=== PATIENT | male | born 1940 | race Caucasian/White ===

== ENCOUNTER 2024-10-23 18:52 | Inpatient (IN) ==
--- NOTE | 2024-10-23 19:16 | Emergency Department Note ---
Impression & Plan ANNA (acute kidney injury), Generalized weakness ED Provider Note HISTORY OF PRESENT ILLNESS: Patient is an 84-year-old male presenting with abnormal laboratory workup. Patient reports that he had called his primary care provider and was evaluated today secondary to feeling generally unwell for the last few days. He states that he has been very tired and rundown and not able to do his daily activities. He reports he has been eating and drinking without difficulty. No difficulties voiding. Denies any abdominal pain, nausea or vomiting. He denies any rashes. Denies any fevers. Denies any chest pain or shortness of breath. Family at bedside reports that all the patient drinks is "Pepsi and coffee." ROS: as above PHYSICAL EXAM: Constitutional: Patient appears in no acute distress. HENT: Head: Normocephalic and atraumatic. Eyes: EOMI, PERRL Mouth/Throat: Mucous membranes moist. Neck: Trachea midline. Neck supple. Cardiovascular: RRR, No murmurs, rubs or gallops. Intact distal pulses. Pulmonary/Chest: No respiratory distress. Breath sounds clear and equal bilaterally. No wheezes or rales. Abdominal: Abdomen soft, no tenderness, rebound or guarding. Musculoskeletal: No edema, tenderness or deformity noted. Skin: Warm and dry. No rash, erythema, pallor or cyanosis Psychiatric: Appropriate mood and affect for situation. Neurological: Alert and keenly responsive. CN II-XII grossly intact, moving all extremities equally and fully. MDM: - Vitals signs showed hypotension - History obtained via patient. History as above. - Chronic conditions affecting care: HTN; HLD - Differential diagnoses include, but are not limited to: dehydration; electrolyte abnormality; obstruction; UTI - Order placed for continuous cardiac monitoring. At this time, monitor showed rate of 72 bpm with normal sinus rhythm, per my interpretation. - External medical records reviewed. Laboratory and imaging workup without was obtained today from the patient's primary doctor was reviewed. Patient had a creatinine of 4.1 and a BUN of 39 at the visit. He had elevated inflammatory markers with a CRP of 10 and ESR of 38. He had a CT scan without contrast performed which was read as "a few small nonspecific pulmonary nodules measuring up to 0.4 cm, stable since prior CTA. No enlarged thoracic lymph nodes." CT abdomen/pelvis without contrast showed "no acute abdominal or pelvic abnormality." - EKG image interpreted by myself showed normal sinus rhythm. Rate 97 bpm. QT 350. No acute ischemic changes. - Laboratory workup interpreted by myself showed normal WBC; anemia (Hgb 10.6); normal PT/INR; stable electrolytes; elevated creatinine (3.97); normal troponin; normal magnesium; normal AST/ALT; normal lipase - Patient given 1L NS in ER. - VBG ordered. - Discussion was had with corrections caseworker about patient's case and need for admission - Hospitalist consulted for admission - Patient admitted to [facility] for further evaluation and management. ASSESSMENT AND PLAN: Diagnosis: ANNA; generalized weakness Plan: admit Past Med/Surg History Problem List (Updated 10/23/24 @ 20:10 by Lyn Snell MD) Generalized weakness (Acute) ANNA (acute kidney injury) (Acute) Medical History (Updated 10/23/24 @ 20:10 by Lyn Snell MD) Chronic low back pain Hypertension Elevated cholesterol Surgical History (Updated 01/16/23 @ 21:09 by Sreekanth Feldman PA-C) No pertinent past surgical history Family History (Updated 01/16/23 @ 21:10 by Sreekanth Feldman PA-C) Other No pertinent family history Social History (Updated 01/15/23 @ 08:16 by Sreekanth Feldman PA-C) Smoking Status: Never smoker Hx Alcohol Use: No Preferred Language: Norwegian Hearing Ability: Use of Hearing Aid marital status: Current Living Situation: Spouse current occupational status: retired Feels Safe at Home: Yes Allergies Allergies Allergy/AdvReac Type Severity Reaction Status Date / Time bee venom protein (honey bee) Allergy Mild SWELLING, Verified 03/01/11 21:24 SOB Home Meds Home Medications Medication Instructions Recorded Confirmed Diclofenac (Voltaren) 50 mg PO BID ##0 03/01/11 Rosuvastatin Calcium (Crestor *) 10 mg PO DAILY ##0 03/01/11 Results & Data (ED) Vital Signs Vital Signs - 24 hr 10/23/24 18:56 10/23/24 20:11 10/23/24 20:12 Temperature 36.6 C Temperature Source Temporal Artery Scan Pulse Rate 70 92 H Pulse Rate [Left Apical] 90 Respiratory Rate 18 21 Respiratory Effort / Characteristics Non-Labored Spontaneous Non-Labored Spontaneous Respiratory Depth Normal Normal Respiratory Pattern Regular Regular Blood Pressure 94/56 L Blood Pressure [Left Arm] 107/57 L Blood Pressure Mean 68 Blood Pressure Mean [Left Arm] 73 Blood Pressure Position Sitting Pulse Oximetry 96 93 Oxygen Delivery Method Room Air Room Air Sepsis Recent Fever Within 48 Hours No Sepsis New/Unexplained Change in Mental Status N/A Sepsis Action Taken by Nursing No Action Required Laboratory Data 10/23/24 19:16 10/23/24 19:16 Lab Results 10/23/24 Range/Units 19:16 WBC 6.46 (4.8-10.8) K/ul RBC 3.58 L (4.70-6.10) M/uL Hgb 10.6 L (14.0-18.0) g/dl Hct 33.5 L (42.0-52.0) % MCV 93.6 (80.0-100.0) fL MCH 29.6 (25.0-34.0) pg MCHC 31.6 L (32.0-36.0) g/dL RDW Std Deviation 57.3 H (36.4-46.3) fL RDW Coeff of Regina 16.6 H (11.5-14.5) % Plt Count 162 (130-400) K/uL MPV 12.2 (9.4-12.4) fL Immature Gran % (Auto) 0.9 % Neut % (Auto) 61.5 % Lymph % (Auto) 24.6 % [place] % (Auto) 11.5 % Eos % (Auto) 1.2 % Baso % (Auto) 0.3 % Neut # (Auto) 3.97 (1.40-6.50) K/uL Lymph # (Auto) 1.59 (1.20-3.40) K/uL [place] # (Auto) 0.74 H (0.11-0.59) K/uL Eos # (Auto) 0.08 (0.00-0.50) K/uL Baso # (Auto) 0.02 (0.00-0.20) K/uL Immature Gran # (Auto) 0.06 (0.01-0.20) K/uL PT 11.7 (9.0-12.0) Seconds INR 1.1 (0.9-1.1) Sodium 141 (136-145) mmol/L Potassium 4.1 (3.5-5.1) mmol/L Chloride 106 (98-107) mmol/L Carbon Dioxide 29 (21-32) mmol/L Anion Gap 6 (3-11) BUN 49 H (6-23) mg/dl Creatinine 3.97 H (0.6-1.4) mg/dl Est Cr Clr Drug Dosing Not Reportable eGFR 14.28 BUN/Creatinine Ratio 12.3 (10-20) Glucose 112 H (70-99(Fasting)) mg/dl Calcium 8.8 (8.6-10.3) mg/dl Phosphorus 3.8 (2.5-4.9) mg/dl Magnesium 2.0 (1.7-2.4) mg/dl Total Bilirubin 0.5 (0.2-1.0) mg/dl AST 34 (13-39) U/L ALT 16 (7-52) U/L Alkaline Phosphatase 86 (34-104) U/L Troponin I High Sens 7.7 (0-20) pg/ml Total Protein 6.5 (6.0-8.3) gm/dl Albumin 3.1 L (3.4-5.0) gm/dl Globulin 3.4 (2.5-4.0) gm/dl Albumin/Globulin Ratio 0.9 (0.9-2) Lipase 38 (11-82) U/L Administered Medications Sodium Chloride (Nss) 1,000 mls @ 999 mls/hr IV .Q1H1M ONE Stop: 10/23/24 20:22 Last Admin: 10/23/24 20:11 Dose: 999 mls/hr Documented By: [facility] Discharge Plan Visit Data Chief Complaint: Abnormal Labs/Diagnostic Testing Stated Complaint: DOC REFF. DIAGNOSTIC TEST KIDNEY ED Provider: Lyn Snell Discharge Problem: ANNA (acute kidney injury), Generalized weakness Condition: Fair Forms Stand Alone Forms: [facility] Prescriptions Prescriptions: No Action Diclofenac (Voltaren) [address] TB 50 mg PO BID Qty: 0 Rosuvastatin Calcium (Crestor *) 10 MG tablet 10 mg PO DAILY Qty: 0 Referrals Referrals: Isabella Wan MD [Primary Care Provider] -
[2024-10-23 19:28] LABS: Hematocrit (blood only) 33.5 % (42.0-52.0); Hemoglobin 10.6 g/dl (14.0-18.0); Immature Granulocytes # (auto) 0.06 K/uL (0.01-0.20); Immature Granulocytes % (auto) 0.9 %; Mean Corpuscular Hemoglobin 29.6 pg (25.0-34.0); Mean Corpuscular Volume 93.6 fL (80.0-100.0); Platelet Count 162 K/uL (130-400); RDW Standard Deviation 57.3 fL (36.4-46.3); Red Blood Count 3.58 M/uL (4.70-6.10); White Blood Count 6.46 K/ul (4.8-10.8)
[2024-10-23 19:46] LABS: Alanine Aminotransferase 16 U/L (7-52); Albumin Globulin Ratio 0.9 (0.9-2); Alkaline Phosphatase 86 U/L (34-104); Anion Gap 6 (3-11); Bilirubin,Total 0.5 mg/dl (0.2-1.0); Blood Urea Nitrogen 49 mg/dl (6-23); Calcium 8.8 mg/dl (8.6-10.3); Carbon Dioxide 29 mmol/L (21-32); Chloride 106 mmol/L (98-107); Globulin 3.4 gm/dl (2.5-4.0); Glucose 112 mg/dl (70-99(Fasting)); Lipase 38 U/L (11-82); Magnesium 2.0 mg/dl (1.7-2.4); Potassium 4.1 mmol/L (3.5-5.1); Sodium 141 mmol/L (136-145); Total Protein 6.5 gm/dl (6.0-8.3)
[2024-10-23 19:53] LABS: INR 1.1 (0.9-1.1); Prothrombin Time 11.7 Seconds (9.0-12.0)
[2024-10-23] MEDS: SODIUM CHLORIDE 0.9% 1,000 ML IV ONE (20:11)
[2024-10-23 20:33] LABS: Base Excess VBG 0.6 mEq/L; HCO3 VBG 27 mmol/L; Oxygen Saturation VBG < 60.0 %; PCO2 VBG 52 mmHg (38-50); PO2 VBG 28 mmHg; pH VBG 7.33 (7.36-7.41)
--- NOTE | 2024-10-23 21:15 | History & Physical Report ---
Date of Service October 23, 2024 Assessment & Plan (1) ANNA (acute kidney injury): Plan: 84-year-old male unassigned patient who had right breast cancer status post excision about 30 years ago and denies any other medical problems but seems taking hypertension, hyperlipidemia and GERD medications comes because of outpatient labs showed creatinine of 4.1. Last 2 -3 days patient was feeling very fatigued went to PCP. Labs were done which showed creatinine 4.1, BUN of 39, potassium 4, sodium of 142, chloride 104, CO2 [address] chest without contrast showed few small nonspecific pulmonary nodules measuring up to 0.4 cm stable since prior CTA chest dated 06/07/2019 and no new pulmonary nodules. And CT abdomen pelvis without IV contrast no acute abdominal or pelvic abnormality. We do not know baseline creatinine. Per records at [facility] creatinine was 0.8 on 01/15/2023. Patient resting comfortably. Alert and oriented. and possible granddaughter in the room. Patient denies any nausea or vomiting. No diarrhea. Lost about 12 pounds in 1 month and PCP just prescribed boost. Denies any headache. Vision is okay. No runny nose or sore throat. No cough. No chest pain or shortness of breath. No nausea. No abdominal pain. Micturating okay. Moving bowels okay. Hemodynamics are okay. Patient denies taking any ddtz-wpk-mkzytji medications like Aleve or Motrin. Family says he takes tramadol. Seems patient is also on meloxicam as needed ANNA Having feeling of fatigue and weakness for last 2 to 3 days Outpatient labs showed creatinine of 4.1 Creatinine here 3.9. Potassium 4.1. BUN 49 No known recent baseline. His creatinine was 0.8 on 01/15/2023 CT abdomen pelvis done by PCP was okay Will place him on gentle fluids Hold his valsartan hydrochlorothiazide Will avoid nephrotoxic agents Will place him on [place] Will follow UA. Urine electrolytes. Uric acid levels Consult nephrology in a.m. for further recommendations Hypertension Continue amlodipine. Hold losartan hydrochlorothiazide Will monitor Anemia Hemoglobin 10.6 Will check stool for Hemoccult. Will follow iron studies, vitamin B12 folate levels Hyperlipidemia On statin GERD Omeprazole DVT prophylaxis Heparin subcu Disposition Telemetry Full code. History of Present Illness Chief Complaint: Abnormal labs Primary Care Provider: Telma Álvarez 84-year-old male unassigned patient who had right breast cancer status post excision about 30 years ago and denies any other medical problems but seems taking hypertension, hyperlipidemia and GERD medications comes because of outpatient labs showed creatinine of 4.1. Last 2 -3 days patient was feeling very fatigued went to PCP. Labs were done which showed creatinine 4.1, BUN of 39, potassium 4, sodium of 142, chloride 104, CO2 [address] chest without contrast showed few small nonspecific pulmonary nodules measuring up to 0.4 cm stable since prior CTA chest dated 06/07/2019 and no new pulmonary nodules. And CT abdomen pelvis without IV contrast no acute abdominal or pelvic abnormality. We do not know baseline creatinine. Per records at [facility] creatinine was 0.8 on 01/15/2023. Patient resting comfortably. Alert and oriented. and possible granddaughter in the room. Patient denies any nausea or vomiting. No diarrhea. Lost about 12 pounds in 1 month and PCP just prescribed boost. Denies any headache. Vision is okay. No runny nose or sore throat. No cough. No chest pain or shortness of breath. No nausea. No abdominal pain. Micturating okay. Moving bowels okay. Hemodynamics are okay. Patient denies taking any nuym-ual-oooktjq medications like Aleve or Motrin. Family says he takes tramadol. Seems patient is also on meloxicam as needed Past medical history. As mentioned above Past surgical history. Excision for right breast cancer about 30 years ago. Social history. Smoked as per patient 5 packs a day for 22 years and quit about 43 years ago. No alcohol use. Family history. Patient denies any family history. Allergies Allergy/AdvReac Type Severity Reaction Status Date / Time bee venom protein (honey bee) Allergy Severe SWELLING, Verified 10/23/24 20:37 SOB Home Medications Medication Instructions Recorded Confirmed Type amlodipine 5 mg tablet 5 mg PO DAILY 10/23/24 10/23/24 History diclofenac sodium 1 % topical gel 2 g topical TID PRN JOINT/MUSCLE 10/23/24 10/23/24 History PAIN gabapentin 100 mg capsule 100 mg PO TID 10/23/24 10/23/24 History meloxicam 7.5 mg tablet 7.5 mg PO DAILY PRN Pain 10/23/24 10/23/24 History omeprazole 20 mg capsule,delayed 20 mg PO BID 10/23/24 10/23/24 History release rosuvastatin 20 mg tablet 20 mg PO DAILY 10/23/24 10/23/24 History tramadol 50 mg tablet 50 mg PO TID PRN Pain 10/23/24 10/23/24 History valsartan 80 1 tab PO DAILY 10/23/24 10/23/24 History mg-hydrochlorothiazide 12.5 mg tablet Past Med/Surg History Problem List (Updated 10/23/24 @ 20:10 by Lyn Snell MD) Generalized weakness (Acute) ANNA (acute kidney injury) (Acute) Medical History (Updated 10/23/24 @ 20:10 by Lyn Snell MD) Chronic low back pain Hypertension Elevated cholesterol Surgical History (Updated 01/16/23 @ 21:09 by Sreekanth Feldman PA-C) No pertinent past surgical history Family History (Updated 01/16/23 @ 21:10 by Sreekanth Feldman PA-C) Other No pertinent family history Social History (Updated 01/15/23 @ 08:16 by Sreekanth Feldman PA-C) Smoking Status: Never smoker Hx Alcohol Use: No Hx Substance Use: No Preferred Language: Honduran Communication Ability: Effective Hearing Ability: Use of Hearing Aid [employer] Required: Yes Beliefs That Will Affect Care: None marital status: Current Living Situation: Spouse current occupational status: retired Other Information That Helps Us Care for You: No Feels Safe at Home: Yes Safety Concerns: Feels Safe At This Time Assistive Devices: Cane Review of Systems Review of Systems: All systems reviewed & are unremarkable except as noted in HPI & below Physical Exam Physical Exam: General- Not in acute distress Head- atraumatic Eyes- PERRL. ENT- oropharynx clear Neck- supple, no JVD. Lungs- clear to auscultation no wheezing or crackles Heart- regular rhythm; no murmur, no gallop. Abdomen- normal bowel sounds, soft, nontender, no distension. Extremities- b/l lower extremity +1 edema present, no erythema seen Neuro- alert, oriented PERRL, no facial palsy; no dysarthria; moves extremities Results & Data Results & Data Vital Signs (Past 12 Hours) Vital Signs Temp Pulse Pulse Resp BP BP Pulse Ox 10/23/24 20:12 90 21 107/57 L 93 10/23/24 20:11 92 H 10/23/24 18:56 36.6 C 70 18 94/56 L 96 O2 Del Method 10/23/24 20:12 Room Air 10/23/24 20:11 10/23/24 18:56 Room Air Diagnostic Findings Laboratory Results WBC 6.46 K/ul (4.8-10.8) 10/23/24 19:16 RBC 3.58 M/uL (4.70-6.10) L 10/23/24 19:16 Hgb 10.6 g/dl (14.0-18.0) L 10/23/24 19:16 Hct 33.5 % (42.0-52.0) L 10/23/24 19:16 MCV 93.6 fL (80.0-100.0) 10/23/24 19:16 MCH 29.6 pg (25.0-34.0) 10/23/24 19:16 MCHC 31.6 g/dL (32.0-36.0) L 10/23/24 19:16 RDW Std Deviation 57.3 fL (36.4-46.3) H 10/23/24 19:16 RDW Coeff of Regina 16.6 % (11.5-14.5) H 10/23/24 19:16 Plt Count 162 K/uL (130-400) 10/23/24 19:16 MPV 12.2 fL (9.4-12.4) 10/23/24 19:16 Immature Gran % (Auto) 0.9 % 10/23/24 19:16 Neut % (Auto) 61.5 % 10/23/24 19:16 Lymph % (Auto) 24.6 % 10/23/24 19:16 [place] % (Auto) 11.5 % 10/23/24 19:16 Eos % (Auto) 1.2 % 10/23/24 19:16 Baso % (Auto) 0.3 % 10/23/24 19:16 Neut # (Auto) 3.97 K/uL (1.40-6.50) 10/23/24 19:16 Lymph # (Auto) 1.59 K/uL (1.20-3.40) 10/23/24 19:16 [place] # (Auto) 0.74 K/uL (0.11-0.59) H 10/23/24 19:16 Eos # (Auto) 0.08 K/uL (0.00-0.50) 10/23/24 19:16 Baso # (Auto) 0.02 K/uL (0.00-0.20) 10/23/24 19:16 Immature Gran # (Auto) 0.06 K/uL (0.01-0.20) 10/23/24 19:16 PT 11.7 Seconds (9.0-12.0) 10/23/24 19:16 INR 1.1 (0.9-1.1) 10/23/24 19:16 VBG pH 7.33 (7.36-7.41) L 10/23/24 20:17 VBG pCO2 52 mmHg (38-50) H 10/23/24 20:17 VBG pO2 28 mmHg 10/23/24 20:17 VBG HCO3 27 mmol/L 10/23/24 20:17 VBG O2 Saturation < 60.0 % 10/23/24 20:17 VBG Base Excess 0.6 mEq/L 10/23/24 20:17 Sodium 141 mmol/L (136-145) 10/23/24 19:16 Potassium 4.1 mmol/L (3.5-5.1) 10/23/24 19:16 Chloride 106 mmol/L (98-107) 10/23/24 19:16 Carbon Dioxide 29 mmol/L (21-32) 10/23/24 19:16 Anion Gap 6 (3-11) 10/23/24 19:16 BUN 49 mg/dl (6-23) H 10/23/24 19:16 Creatinine 3.97 mg/dl (0.6-1.4) H 10/23/24 19:16 Est Cr Clr Drug Dosing Not Reportable 10/23/24 19:16 eGFR 14.28 10/23/24 19:16 BUN/Creatinine Ratio 12.3 (10-20) 10/23/24 19:16 Glucose 112 mg/dl (70-99(Fasting)) H 10/23/24 19:16 Lactate 1.2 mmol/L (0.4-2.0) 10/23/24 20:17 Calcium 8.8 mg/dl (8.6-10.3) 10/23/24 19:16 Phosphorus 3.8 mg/dl (2.5-4.9) 10/23/24 19:16 Magnesium 2.0 mg/dl (1.7-2.4) 10/23/24 19:16 Total Bilirubin 0.5 mg/dl (0.2-1.0) 10/23/24 19:16 AST 34 U/L (13-39) 10/23/24 19:16 ALT 16 U/L (7-52) 10/23/24 19:16 Alkaline Phosphatase 86 U/L (34-104) 10/23/24 19:16 Troponin I High Sens 7.7 pg/ml (0-20) 10/23/24 19:16 Total Protein 6.5 gm/dl (6.0-8.3) 10/23/24 19:16 Albumin 3.1 gm/dl (3.4-5.0) L 10/23/24 19:16 Globulin 3.4 gm/dl (2.5-4.0) 10/23/24 19:16 Albumin/Globulin Ratio 0.9 (0.9-2) 10/23/24 19:16 Lipase 38 U/L (11-82) 10/23/24 19:16 ECG Additional Comments: ECG normal sinus rhythm rate of 97. QTc 444 Code Status & VTE Plan VTE Prophylaxis Plan VTE Prophylaxis will be ordered: Yes
[2024-10-23 22:04] LABS: Appearance Urine Cloudy (Clear); Bacteria Urine Automated None Seen (None Seen); Glucose Urine UA Negative (Negative); RBC Urine Automated 0-2 /hpf (0-2); WBC Urine Automated 0-5 /hpf (0-5)
[2024-10-23] MEDS ORDERED: ACETAMINOPHEN 325 MG TAB PO PRN (22:15)
[2024-10-23] MEDS ORDERED: NITROGLYCERIN SL 0.4 MG/TAB TAB SL PRN (22:15)
[2024-10-23] MEDS: HEPARIN SOD 5,000 UNIT/0.5 ML VIAL SQ SCH (23:17)
[2024-10-23] MEDS: SODIUM CHLORIDE 0.9% 1,000 ML IV SCH (23:17)
[2024-10-24 04:49] LABS: Hematocrit (blood only) 31.4 % (42.0-52.0); Hemoglobin 10.2 g/dl (14.0-18.0); Immature Granulocytes # (auto) 0.06 K/uL (0.01-0.20); Immature Granulocytes % (auto) 1.1 %; Mean Corpuscular Hemoglobin 30.4 pg (25.0-34.0); Mean Corpuscular Volume 93.5 fL (80.0-100.0); Platelet Count 163 K/uL (130-400); RDW Standard Deviation 57.3 fL (36.4-46.3); Red Blood Count 3.36 M/uL (4.70-6.10); White Blood Count 5.68 K/ul (4.8-10.8)
[2024-10-24 05:07] LABS: Anion Gap 6.0 (3-11); Blood Urea Nitrogen 47.0 mg/dl (6-23); Calcium 8.4 mg/dl (8.6-10.3); Carbon Dioxide 26.0 mmol/L (21-32); Chloride 110.0 mmol/L (98-107); Creatinine Clr Calc Pharmacy 17.0 ml/min; Glucose 99.0 mg/dl (70-99(Fasting)); Iron 44.0 mcg/dl (35-175); Magnesium 2.0 mg/dl (1.7-2.4); Potassium 4.1 mmol/L (3.5-5.1); Sodium 142.0 mmol/L (136-145); Total Iron Binding Cap Calc 228.0 mcg/dl (250-450); Transferrin 163.0 mg/dl (200-360); Transferrin (FE) Percent Satur 19.0 % (20-50); Uric Acid 10.2 mg/dl (2.6-7.2)
[2024-10-24 06:01] LABS: Folate (Folic Acid),Ser orPlas 8.76 ng/ml (>5.38)
[2024-10-24 06:02] LABS: Vitamin B12 120.0 pg/ml (180-914)
--- NOTE | 2024-10-24 06:51 | Ultrasound Report ---
EXAM: US renal/blad retro comp CLINICAL HISTORY: ANNA (acute kidney injury) TECHNIQUE: A renal ultrasound was performed using grayscale imaging and color Doppler. COMPARISON: No previous studies are available for comparison. FINDINGS: Right Kidney: The right kidney measures 12.6 x 4.9 x 4.7 cm. Multiple cortical cysts are seen, the largest at the upper pole measuring 5.7 x 4.5 x 4.3 cm. No hydronephrosis, calculi, or masses were identified. Renal parenchymal echogenicity is mildly raised Cortical thickness: Within normal. The renal pelvis is within normal. Left Kidney: Left kidney measures 10.3 x 4.5 x 5.8 cm. Limited views. Multiple renal cortical cysts are seen, with a septated cyst noted at the junction of the upper and mid pole measuring 1.4 x 1.5 x 1.5 cm. Largest cortical cyst at medial aspect of the midpole measuring 1.8 x 1.7 x 1.7 cm. No hydronephrosis, calculi, or masses were identified. Renal parenchymal echogenicity is mildly raised Cortical thickness: Within normal. The renal pelvis is within normal. Urinary bladder: The urinary bladder is normally distended with normal wall thickness. No calculus or mass is noted in it. Only the right ureteric jet is seen at the time of scan. The prostate appears prominent, with central parenchymal calcifications. IMPRESSION: 1. 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 No evidence of hydronephrosis or renal masses. 3. Grade 1 renal parenchymal disease correlates with renal function tests (history of ANNA). 4. The prostate appears prominent, with central parenchymal calcifications. Suggest a dedicated prostatic ultrasound. Electronically signed by Minor Nagy 10-24-2024 06:51 AM
[2024-10-24] MEDS: CYANOCOBALAMIN 1000 MCG/ML VIAL IM SCH (08:24)
[2024-10-24] MEDS: ROSUVASTATIN CALCIUM 20 MG TAB PO SCH (08:25)
[2024-10-24] MEDS: GABAPENTIN 100 MG CAP PO SCH (08:25)
[2024-10-24] MEDS ORDERED: CYANOCOBALAMIN 1000 MCG/ML VIAL IM SCH (09:00)
--- NOTE | 2024-10-24 11:56 | Nephrology Consultation ---
Date of Consultation October 24, 2024 Assessment & Plan (1) ANNA (acute kidney injury): At this time we dont have recent baseline creat but was 0/9 as of . has never had Any renal problems.peak creat of 4.1 puts him at Stage 3 ANNA. But creat is improving rapidly with IVF and holding BP meds. ANNA is hemodynamic type--but looking at UA may have progressed to Some degree of ATN also with Lots of epi cells and hyaline//Granular casts. he had low BP of 80/40 at PCP office on [place] 10/22/24. Such low BP in elderly patient precious when they are taking ARB and HCTZ is enough to cause ANNA. I think this is what happened. Has had poor intake and also lost wt last 1 month. renal US reviewed and no hydronephrosis for now continue NS at 80 ml/hr till AM 10/25/2024. Continue to hold ARB and HCTZ. Avoid NSAIDS, contrast agents. If BP gets higher than 150/90 restart Amlodipine first--would not mind slightly higher BP for 1-2 days. was on neurontin--Consider holding till we see better renal function. daily CBC and renal panel. monitor Urine output (2) Generalized weakness: Likely related with Low BP pre admission Plan time spent 63 mins. History of Present Illness Reason for Consultation: ANNA Attending Physician: Bienvenido Maynard MD History of Present Illness 84/M with Unclear recent baseline Creatinine ( was normal in 2022). has h/o right breast cancer status post excision about 30 years ago, hypertension, hyperlipidemia and GERD. Denies DM or heart/Vascular Diseases. he saw his PCP Dr Álvarez on Tuesday. Had labs done Tuesday and showed creat of 4.2 and then was sent over to [facility] for admission. Last 2 -3 days patient was feeling very fatigued went to PCP. Also BP in that visit was noted to be low at 80/40. PCP told them to stop valsartan/HCTZ and Said to drink Boost. CT chest without contrast showed few small nonspecific pulmonary nodules measuring up to 0.4 cm stable since prior CTA chest dated 06/07/2019 and no new pulmonary nodules. And CT abdomen pelvis without IV contrast no acute abdominal or pelvic abnormality. Since admission--NS given . BP is not low anymore. Creat is improving and down to 3.2 this AM. Patient resting comfortably. Alert and oriented. also in the room. ROS---- Patient denies any nausea or vomiting. No diarrhea. Lost about 12 pounds in 1 month and PCP just prescribed boost. Denies any headache. Vision is okay. No runny nose or sore throat. No cough. No chest pain or shortness of breath. No nausea. No abdominal pain. Micturating okay. Moving bowels okay. Hemodynamics are okay. Patient denies taking any xoxt-uzv-cxladlk medications like Aleve or Motrin. Family says he takes tramadol. Seems patient is also on meloxicam as needed but He does no think he is taking this. Physical Exam Physical Exam: General- Not in acute distress ENT- oropharynx clear Neck- supple, no JVD. Lungs- clear to auscultation no wheezing or crackles Heart- regular rhythm; no murmur, no gallop. Abdomen- soft, nontender, no distension. Extremities- b/l lower extremity Trace edema present Neuro- alert, oriented PERRL, no facial palsy; no dysarthria; moves extremities Allergies Allergy/AdvReac Type Severity Reaction Status Date / Time bee venom protein (honey bee) Allergy Severe SWELLING, Verified 10/23/24 20:37 SOB Home Medications Medication Instructions Recorded Confirmed Type amlodipine 5 mg tablet 5 mg PO DAILY 10/23/24 10/23/24 History diclofenac sodium 1 % topical gel 2 g topical TID PRN JOINT/MUSCLE 10/23/24 10/23/24 History PAIN gabapentin 100 mg capsule 100 mg PO TID 10/23/24 10/23/24 History meloxicam 7.5 mg tablet 7.5 mg PO DAILY PRN Pain 10/23/24 10/23/24 History omeprazole 20 mg capsule,delayed 20 mg PO BID 10/23/24 10/23/24 History release rosuvastatin 20 mg tablet 20 mg PO DAILY 10/23/24 10/23/24 History tramadol 50 mg tablet 50 mg PO TID PRN Pain 10/23/24 10/23/24 History valsartan 80 1 tab PO DAILY 10/23/24 10/23/24 History mg-hydrochlorothiazide 12.5 mg tablet Patient History Medical History Chronic low back pain Hypertension Elevated cholesterol Surgical History No pertinent past surgical history Family History Other No pertinent family history Social History Smoking Status: Never smoker Hx Alcohol Use: No Hx Substance Use: No Preferred Language: South Korean Communication Ability: Effective Hearing Ability: Use of Hearing Aid Systems Librarian Required: Yes Beliefs That Will Affect Care: None marital status: Current Living Situation: Spouse current occupational status: retired Other Information That Helps Us Care for You: No Feels Safe at Home: Yes Safety Concerns: Feels Safe At This Time Assistive Devices: Cane Results & Data Vital Signs (Past 12 Hours) Vital Signs Temp Pulse Pulse Resp BP Pulse Ox O2 Del Method 10/24/24 08:58 82 10/24/24 08:00 36.5 C 87 18 147/66 H 97 Room Air, Nasal Cannula 10/24/24 05:15 Room Air 10/24/24 04:56 89 10/24/24 04:40 36.4 C L 70 16 121/66 98 Room Air 10/24/24 03:34 85 16 104/62 95 Nasal Cannula 10/24/24 00:52 85 16 94/60 L 98 Room Air 10/24/24 00:44 89 16 94/60 L 98 Nasal Cannula O2 Flow Rate 10/24/24 08:58 10/24/24 08:00 2 10/24/24 05:15 10/24/24 04:56 10/24/24 04:40 10/24/24 03:34 2 10/24/24 00:52 2 10/24/24 00:44 2 Laboratory Results CBC, UA, renal panel. Diagnostic Findings CT abdomen. CT chest and also renal US---has b/l renal Cysts largest in rt Kidney. NO Hdyronephrosis
--- NOTE | 2024-10-24 13:10 | Hospitalist Progress Note ---
Date of Service October 24, 2024 Assessment & Plan (1) ANNA (acute kidney injury): Plan: 84-year-old male unassigned patient who had right breast cancer status post excision about 30 years ago and denies any other medical problems but seems taking hypertension, hyperlipidemia and GERD medications comes because of outpatient labs showed creatinine of 4.1. Last 2 -3 days patient was feeling very fatigued went to PCP. Labs were done which showed creatinine 4.1, BUN of 39, potassium 4, sodium of 142, chloride 104, CO2 [address] chest without contrast showed few small nonspecific pulmonary nodules measuring up to 0.4 cm stable since prior CTA chest dated 06/07/2019 and no new pulmonary nodules. And CT abdomen pelvis without IV contrast no acute abdominal or pelvic abnormality. We do not know baseline creatinine. Per records at [facility] creatinine was 0.8 on 01/15/2023. Suspected acute kidney injury Unknown baseline Having feeling of fatigue and weakness for last 2 to 3 days Outpatient labs showed creatinine of 4.1 Creatinine here 3.9 on admission. Potassium 4.1. BUN 49 No known recent baseline. His creatinine was 0.8 on 01/15/2023 Continue IV fluids; hold antihypertensive; avoid nephrotoxic agent. Repeat BMP in a.m. Vitamin B12 deficiencyvitamin B12 level of 128 PG/mL; started on vitamin B12 1000 mg injection every other day. Anemiapresented with hemoglobin of 10.6; vitamin B12 supplement started; will need workup as outpatient with PCP after repletion of vitamin B12 Hypertension- hold antihypertensives Hyperlipidemia On statin,continue GERD Omeprazole,continue DVT prophylaxis Heparin subcu Disposition Telemetry Full code. Time spent evaluating patient, direct bedside care, chart review, placing orders, interpretation of diagnostic studies, discussion with consultants, patient, and family members, as well as other required patient management activities is 50 minutes Please note the above document was generated using voice recognition software. It may contain grammatical, syntax or spelling errors. Any formal questions or concerns about the content, text or information contained within the body of this dictation should be directly addressed to the provider for clarification Admission and Anticipated Discharge Date Admission Date: October 23, 2024 Subjective Patient seen and examined at bedside. He reports that he is feeling better compared to admission. Denies any pain or discomfort. No significant events overnight Review of Systems Review of Systems: All systems reviewed & are unremarkable except as noted in Subjective Physical Exam Physical Exam: Constitutional: WD/WN, vitals as above, NAD, sitting up in bed, pleasant, conversing easily Respiratory: normal respiratory effort, lungs clear to auscultation, no wheeze, rales, rhonchi. Normal insp/exp effort, no accessory muscle use Cardiovascular: RRR, no murmur, no edema Vessels: no JVD or carotid bruit Chest: normal inspection of chest Abdomen: normal bowel sounds, soft, nontender, no hepatosplenomegaly Musculoskeletal: no cyanosis or clubbing, extremities motor strength 5/5 Skin: no rashes, warm and dry normal turgor Neurologic: PERRL, EOMI, accommodation nl, no face palsy, no dysarthria CN's II- XI intact bilaterally and moves all extremities Psychiatric: A+Ox3, euthymic affect Results & Data Results & Data Vital Signs (Past 12 Hours) Vital Signs Temp Pulse Pulse Resp BP Pulse Ox O2 Del Method 10/24/24 12:00 36.6 C 78 16 136/78 97 Room Air 10/24/24 08:58 82 10/24/24 08:00 36.5 C 87 18 147/66 H 97 Room Air, Nasal Cannula 10/24/24 05:15 Room Air 10/24/24 04:56 89 10/24/24 04:40 36.4 C L 70 16 121/66 98 Room Air 10/24/24 03:34 85 16 104/62 95 Nasal Cannula O2 Flow Rate 10/24/24 12:00 10/24/24 08:58 10/24/24 08:00 2 10/24/24 05:15 10/24/24 04:56 10/24/24 04:40 10/24/24 03:34 2
--- NOTE | 2024-10-24 17:31 | Electrocardiogram Report ---
Test Reason : Blood Pressure : */* mmHG Vent. Rate : 97 BPM Atrial Rate : 97 BPM P-R Int : 192 ms QRS Dur : 88 ms QT Int : 350 ms P-R-T Axes : 99 34 71 degrees QTcB Int : 444 ms Normal sinus rhythm Normal ECG When compared with ECG of 15-Jan-2023 08:40, Premature ventricular complexes are no longer Present MI interval has decreased QRS voltage has decreased Confirmed by Rodriguez Ruffin ([id number]) on 10/24/2024 5:31:23 PM Referred By: Telma Álvarez Confirmed By: Rodriguez Ruffin
[2024-10-25 08:01] LABS: Anion Gap 7 (3-11); Blood Urea Nitrogen 36 mg/dl (6-23); Calcium 8.2 mg/dl (8.6-10.3); Carbon Dioxide 22 mmol/L (21-32); Chloride 111 mmol/L (98-107); Creatinine Clr Calc Pharmacy 23.3 ml/min; Ferritin 277.6 ng/ml (8-388); Glucose 89 mg/dl (70-99(Fasting)); Sodium 140 mmol/L (136-145)
--- NOTE | 2024-10-25 11:58 | Nephrology Progress Note ---
Date of Service October 25, 2024 Assessment & Plan (1) ANNA (acute kidney injury): Plan: improving nonoliguric stage 3 ANNA from ischemic ATN At this time we dont have recent baseline creat but was 0.9 as of 12/2022. has never had Any renal problems. peak creat of 4.1 puts him at Stage 3 ANNA on 10/23; improved to 2.4 today. But creat is improving rapidly with IVF and holding BP meds. UA with Lots of epi cells and hyaline//Granular casts. he had low BP of 80/40 at PCP office on [place] 10/22/24. Such low BP in elderly patient precious when they are taking ARB and HCTZ is enough to cause ANNA. Has had poor intake and also lost wt last 1 month. renal US with no hydronephrosis >>stop NS at this point; will change to 1/2 NS d/t hyperchloremia -Continue to hold ARB and HCTZ. Avoid NSAIDS, contrast agents. -BP has been acceptable. If BP gets higher than 150/90 restart Amlodipine first--would not mind slightly higher BP for 1-2 days. -appears to be tolerating neurontin >>last hgb 10.2 w/ slight downtrend ?w/ hydration >> ordered repeat hgb for am >cont to track Urine output care coordinated with Dr. Maynard via [employer] text regarding the fluid changes, hemoglobin and creatinine trends, follow-up labs; we are in agreement (2) Generalized weakness: Plan: Likely related with Low BP pre admission; BP currently acceptable and patient ambulating with caution Admission and Anticipated Discharge Date Admission Date: October 23, 2024 Subjective No acute interval events clinically. Denies shortness of breath, nausea vomiting, edema, uncontrolled musculoskeletal pain. States he has been up to the bathroom to do ADLs Review of Systems 2 Review of Systems: All systems reviewed & are unremarkable except as noted in Subjective Physical Exam 2 Constitutional: well developed and well nourished Eyes: EOM intact bilaterally ENMT: Mouth: + dry oral mucous membranes Respiratory: normal respiratory effort Auscultation: + diminished lung sounds Gastrointestinal (Abdomen): Inspection/Auscultation: normal bowel sounds P ercussion/Palpation: abdomen soft; abdomen nontender Musculoskeletal: Extremities: strength 5/5 throughout Skin: no rashes, warm and dry Neurologic: patiño, fluent speech, no tremor Results & Data Vital Signs (Past 12 Hours) Vital Signs Temp Pulse Pulse Pulse Resp BP Pulse Ox 10/25/24 10:58 36.5 C 83 18 118/68 94 10/25/24 09:03 85 10/25/24 07:34 36.7 C 87 16 118/60 94 10/25/24 03:00 36.7 C 84 18 105/78 94 O2 Del Method 10/25/24 10:58 Room Air 10/25/24 09:03 10/25/24 07:34 Room Air 10/25/24 03:00 Room Air Laboratory Results 10/24/24 04:12 10/25/24 09:21
[2024-10-25] MEDS: SODIUM CHLORIDE 0.45 % 1,000 ML IV SCH (12:06)
--- NOTE | 2024-10-25 13:01 | Hospitalist Progress Note ---
Date of Service October 25, 2024 Assessment & Plan (1) ANNA (acute kidney injury): Plan: 84-year-old male unassigned patient who had right breast cancer status post excision about 30 years ago and denies any other medical problems but seems taking hypertension, hyperlipidemia and GERD medications comes because of outpatient labs showed creatinine of 4.1. Last 2 -3 days patient was feeling very fatigued went to PCP. Labs were done which showed creatinine 4.1, BUN of 39, potassium 4, sodium of 142, chloride 104, CO2 [address] chest without contrast showed few small nonspecific pulmonary nodules measuring up to 0.4 cm stable since prior CTA chest dated 06/07/2019 and no new pulmonary nodules. And CT abdomen pelvis without IV contrast no acute abdominal or pelvic abnormality. We do not know baseline creatinine. Per records at [facility] creatinine was 0.8 on 01/15/2023. Suspected acute kidney injury Unknown baseline Having feeling of fatigue and weakness for last 2 to 3 days Outpatient labs showed creatinine of 4.1 Creatinine here 3.9 on admission. Potassium 4.1. BUN 49 No known recent baseline. His creatinine was 0.8 on 01/15/2023 Creatinine down trended with IV hydration. Discussed with nephrology; who recommends half NS fluid. Plan to continue overnight Repeat BMP in a.m. Vitamin B12 deficiencyvitamin B12 level of 128 PG/mL; started on vitamin B12 1000 mg injection every other day. Anemiapresented with hemoglobin of 10.6; vitamin B12 supplement started; will need workup as outpatient with PCP after repletion of vitamin B12 Hypertension- hold antihypertensives Hyperlipidemia On statin,continue GERD Omeprazole,continue DVT prophylaxis Heparin subcu Disposition Telemetry Full code. Time spent evaluating patient, direct bedside care, chart review, placing orders, interpretation of diagnostic studies, discussion with consultants, patient, and family members, as well as other required patient management activities is 50 minutes Please note the above document was generated using voice recognition software. It may contain grammatical, syntax or spelling errors. Any formal questions or concerns about the content, text or information contained within the body of this dictation should be directly addressed to the provider for clarification Admission and Anticipated Discharge Date Admission Date: October 23, 2024 Subjective Patient seen and examined at bedside. Comfortable; not in distress. Denies fever, chills, chest pain, shortness of breath, abdominal pain or urinary symptoms. No significant overnight events Review of Systems Review of Systems: All systems reviewed & are unremarkable except as noted in Subjective Physical Exam Physical Exam: Constitutional: WD/WN, vitals as above, NAD, sitting up in bed, pleasant, conversing easily Respiratory: normal respiratory effort, lungs clear to auscultation, no wheeze, rales, rhonchi. Normal insp/exp effort, no accessory muscle use Cardiovascular: RRR, no murmur, no edema Vessels: no JVD or carotid bruit Chest: normal inspection of chest Abdomen: normal bowel sounds, soft, nontender, no hepatosplenomegaly Musculoskeletal: no cyanosis or clubbing, extremities motor strength 5/5 Skin: no rashes, warm and dry normal turgor Neurologic: PERRL, EOMI, accommodation nl, no face palsy, no dysarthria CN's II- XI intact bilaterally and moves all extremities Psychiatric: A+Ox3, euthymic affect Results & Data Results & Data Vital Signs (Past 12 Hours) Vital Signs Temp Pulse Pulse Pulse Resp BP Pulse Ox 10/25/24 10:58 36.5 C 83 18 118/68 94 10/25/24 09:03 85 10/25/24 07:34 36.7 C 87 16 118/60 94 10/25/24 03:00 36.7 C 84 18 105/78 94 O2 Del Method 10/25/24 10:58 Room Air 10/25/24 09:03 10/25/24 07:34 Room Air 10/25/24 03:00 Room Air
[2024-10-26 07:33] LABS: Anion Gap 5.0 (3-11); Blood Urea Nitrogen 26.0 mg/dl (6-23); Calcium 7.9 mg/dl (8.6-10.3); Carbon Dioxide 24.0 mmol/L (21-32); Chloride 110.0 mmol/L (98-107); Creatinine Clr Calc Pharmacy 30.9 ml/min; Glucose 95.0 mg/dl (70-99(Fasting)); Potassium 3.5 mmol/L (3.5-5.1); Sodium 139.0 mmol/L (136-145)
[2024-10-26 08:00] VITALS: BP 131/66; RESP 18; TEMP 97.9; O2SAT 95
--- NOTE | 2024-10-26 09:25 | Nephrology Progress Note ---
Date of Service October 26, 2024 Assessment & Plan (1) ANNA (acute kidney injury): Plan: improving nonoliguric stage 3 ANNA from ischemic ATN At this time we dont have recent baseline creat but was 0.9 as of 12/2022. has never had Any renal problems. peak creat of 4.1 puts him at Stage 3 ANNA on 10/23; improved to 1.8 today. But creat is further improving with IVF and holding BP meds. UA with Lots of epi cells and hyaline//Granular casts. he had low BP of 80/40 at PCP office [place] 10/22/24. Such low BP in elderly patient precious when they are taking ARB and HCTZ is enough to cause ANNA. Has had poor intake and also lost wt last 1 month. renal US with no hydronephrosis >>stop IV fluids -Continue to hold ARB and HCTZ. Avoid NSAIDS, contrast agents. -BP has been acceptable. If BP gets higher than 150/90 restart Amlodipine first--would not mind slightly higher BP for 1-2 days. -appears to be tolerating neurontin >>last hgb 9.7 w/ slight downtrend ?w/ hydration > monitor as OP NEPHRO D/C RECS: DX: stage 4 nonoliguric acute kidney injury from ischemic acute tubular necrosis RX: At discharge please HOLD amlodipine, valsartan hydrochlorothiazide; suggest permanently stopping meloxicam. -tylenol up to 2 gm daily PRN pain OTHER CARE: - Basic metabolic panel and CBC at PCP follow-up visit - neph nurse to order off-site labs and mail to the patient to be done the week of the nephrology appointment: hgb, transferrin saturation, bmp, uacm, ACR, AND protein/creat ratio. - avoid all nsaids - Patient does not have a validated home blood pressure cuff but his checks manually at home when asked: low threshold to get an automated home BP cuff - pls bring log of 12-14 blood pressures from 3-5 days before PCP appt and nephrology follow up appt along to those appointments for provider review FOLLOW UP APPTS: - PCP within a week - [facility] discharge visit [facility] in 3 to 4 weeks care coordinated with Dr. Maynard via [place] text regarding discharge disposition, medications, follow-up labs and appointments, follow-up labs; we are in agreement (2) Generalized weakness: Plan: Likely related with Low BP pre admission; BP currently acceptable (on IV fluids) and patient ambulating with caution Suggest stopping IV fluids now and>> checking orthostatic vital signs in 1 hour: Will discuss with hospitalist Admission and Anticipated Discharge Date Admission Date: October 23, 2024 Subjective no interval events clinically. He has been up to toilet and does not feel lightheaded or dizzy. Denies shortness of breath or edema or nausea vomiting. Physical Exam 2 Constitutional: well developed (Sitting in bed on room air and maneuvers easily for exam) and well nourished; no acute distress Eyes: EOM intact bilaterally ENMT: Mouth: oral mucous membranes not dry Respiratory: normal respiratory effort Auscultation: + diminished lung sounds Gastrointestinal (Abdomen): Inspection/Auscultation: normal bowel sounds P ercussion/Palpation: abdomen soft; abdomen nontender Musculoskeletal: Extremities: strength 5/5 throughout Skin: no rashes, warm and dry Results & Data Vital Signs (Past 12 Hours) Vital Signs Temp Pulse Pulse Resp BP Pulse Ox O2 Del Method 10/26/24 07:59 36.6 C 83 18 131/66 95 Room Air 10/26/24 02:58 36.7 C 84 17 114/57 L 98 Room Air 10/25/24 23:22 36.8 C 68 18 130/68 95 Room Air 10/25/24 22:25 92 H Laboratory Results 10/26/24 06:59 10/26/24 06:59
[2024-10-26 10:31] VITALS: PULSE 87
--- NOTE | 2024-10-26 11:44 | Discharge Summary ---
Date of Service October 26, 2024 Admission HPI Per Admitting Provider 84-year-old male unassigned patient who had right breast cancer status post excision about 30 years ago and denies any other medical problems but seems taking hypertension, hyperlipidemia and GERD medications comes because of outpatient labs showed creatinine of 4.1. Last 2 -3 days patient was feeling very fatigued went to PCP. Labs were done which showed creatinine 4.1, BUN of 39, potassium 4, sodium of 142, chloride 104, CO2 [address] chest without contrast showed few small nonspecific pulmonary nodules measuring up to 0.4 cm stable since prior CTA chest dated 06/07/2019 and no new pulmonary no dules. And CT abdomen pelvis without IV contrast no acute abdominal or pelvic abnormality. We do not know baseline creatinine. Per records at [facility] creatinine was 0.8 on 01/15/2023. Patient resting comfortably. Alert and oriented. and possible granddaughter in the room. Patient denies any nausea or vomiting. No diarrhea. Lost about 12 pounds in 1 month and PCP just prescribed boost. Denies any headache. Vision is okay. No runny nose or sore throat. No cough. No chest pain or shortness of breath. No nausea. No abdominal pain. Micturating okay. Moving bowels okay. Hemodynamics are okay. Patient denies taking any [id number] medications like Aleve or Motrin. Family says he takes tramadol. Seems patient is also on meloxicam as needed Past medical history. As mentioned above Past surgical history. Excision for right breast cancer about 30 years ago. Social history. Smoked as per patient 5 packs a day for 22 years and quit about 43 years ago. No alcohol use. Family history. Patient denies any family history. Admission Exam Per Admitting Provider General- Not in acute distress Head- atraumatic Eyes- PERRL. ENT- oropharynx clear Neck- supple, no JVD. Lungs- clear to auscultation no wheezing or crackles Heart- regular rhythm; no murmur, no gallop. Abdomen- normal bowel sounds, soft, nontender, no distension. Extremities- b/l lower extremity +1 edema present, no erythema seen Neuro- alert, oriented PERRL, no facial palsy; no dysarthria; moves extremit ies Principal Diagnosis Acute kidney injury Discharge Exam Constitutional: WD/WN, vitals as above, NAD, sitting up in bed, pleasant, conversing easily Respiratory: normal respiratory effort, lungs clear to auscultation, no wheeze, rales, rhonchi. Normal insp/exp effort, no accessory muscle use Cardiovascular: RRR, no murmur, no edema Vessels: no JVD or carotid bruit Chest: normal inspection of chest Abdomen: normal bowel sounds, soft, nontender, no hepatosplenomegaly Musculoskeletal: no cyanosis or clubbing, extremities motor strength 5/5 Skin: no rashes, warm and dry normal turgor Neurologic: PERRL, EOMI, accommodation nl, no face palsy, no dysarthria CN's II- XI intact bilaterally and moves all extremities Psychiatric: A+Ox3, euthymic affect Discharge Data Allergies Allergy/AdvReac Type Severity Reaction Status Date / Time bee venom protein (honey bee) Allergy Severe SWELLING, Verified 10/23/24 20:37 SOB Consultations 10/23/24 20:26 ED Decision to Admit Stat 10/24/24 08:00 Consult Nephrology Routine Ordered Studies 10/24/24 US renal/blad retro comp Routine Hospital Course (1) ANNA (acute kidney injury): 84-year-old male unassigned patient who had right breast cancer status post excision about 30 years ago and denies any other medical problems but seems taking hypertension, hyperlipidemia and GERD medications comes because of outpatient labs showed creatinine of 4.1. Acute kidney injury Having feeling of fatigue and weakness for last 2 to 3 days Outpatient labs showed creatinine of 4.1 Creatinine here 3.9 on admission. Potassium 4.1. BUN 49 No known recent baseline. His creatinine was 0.8 on 01/15/2023 Patient reported hypotension at home and at PCPs office; that was thought the reason for the kidney injury. Patient was hydrated with IV fluids which resu lted in improvement in the creatinine to 1.8. Patient's antihypertensives were stopped at the time of the discharge. Patient was recommended to measure blood pressure at home and make a log of it. Patient to follow-up with PCP and obtain CBC and BMP. Anemia Vitamin B12 deficiency Vitamin B12 level of 128 PG/mL; Was treated with vitamin B12 injection every other day while in the hospital; was discharged on vitamin B12 supplement. He will need repeat vitamin B12 level as outpatient. Please note the above document was generated using voice recognition software. It may contain grammatical, syntax or spelling errors. Any formal questions or concerns about the content, text or information contained within the body of this dictation should be directly addressed to the provider for clarification Total Time Total Time Spent Total Time Spent (In Minutes): 45 Total Time Includes: Examination of the Patient, Discharge Planning, Medication Reconciliation, Communication With Other Providers and Other Discharge Plan Discharge Items Patient Disposition: Home - Self-Care Reason For Visit: ANNA Discharge Diagnosis: Acute Kidney Injury Condition on Discharge: Fair Non-emergency contact: Primary Care Provider Call non-emergency contact if: you have any medication questions and your symptoms worsen Follow-up/Referrals: Telma Álvarez M.D. [Primary Care Provider] - 10/29/24 2:15 pm () Diet: Regular Addtl Attending Provider Instructions: You were admitted to the hospital due to acute kidney injury. The likely cause for it is low blood pressure. Please stop taking following medications; Amlodipine Meloxicam Valsartan- hydrochlorothiazide Take Tylenol as needed for pain control instead of meloxicam. You are found to have vitamin B12 deficiency; please take vitamin B12 tablets twice a day for 30 days. Please follow-up with your primary care doctor as scheduled. Please obtain BMP and CBC during her follow-up. Please follow-up with nephrology. Please check your blood pressure daily at home and make a log of it; take it to nephrology appointment. The blood pressure should be taken in a seated position with arm rested and legs flat on the ground. Pending Studies at Discharge: No Stand-Alone Forms: [facility] Sm[facility] Cess[facility] Medications and DC Order Prescriptions: New cyanocobalamin (vitamin B-12) 1,000 mcg capsule 1,000 mcg PO BID 30 Days Qty: 60 0RF acetaminophen [Tylenol] 325 mg tablet 325 mg PO Q6H PRN (Reason: fever or pain) Qty: 30 0RF Continued tramadol 50 mg tablet 50 mg PO TID PRN (Reason: Pain) omeprazole 20 mg capsule,delayed release(DR/EC) 20 mg PO BID gabapentin 100 mg capsule 100 mg PO TID rosuvastatin 20 mg tablet 20 mg PO DAILY diclofenac sodium 1 % gel 2 g TOPICAL TID PRN (Reason: JOINT/MUSCLE PAIN) Discontinued amlodipine 5 mg tablet 5 mg PO DAILY Rx Instructions: ON HOLD PER FAMILY "B/P TOO LOW" valsartan-hydrochlorothiazide 80-12.5 mg tablet 1 tab PO DAILY Rx Instructions: ON HOLD PER FAMILY "B/P TOO LOW". meloxicam 7.5 mg tablet 7.5 mg PO DAILY PRN (Reason: Pain) Discharge Orders: Discharge Order (Routine); Ordered 10/26/24 Ordered By: Bienvenido Maynard Admission Data Admit Date/Time: 10/23/24 21:05 Attending Provider: Bienvenido Maynard Admit Provider: Bran Galicia Primary Care Provider: Telma Álvarez Other Providers: Bran Galicia; Asim Paul Other Interventions: Discharge Summary Assessment (RN) Last Done: 10/26/24 10:30
== END 2024-10-26 12:07 | disposition home or self-care (01) | DRG 684 ==
LOC: ED 18:52 → EDINP 21:05 → 2S 10-24 04:59